=== PATIENT | male | born 1975 | race Caucasian/White ===

== ENCOUNTER 2024-09-07 10:49 | Outpatient (OUT) | payer BC, SELFPAY ==
--- OUTSIDE RECORDS SUMMARY | 2024-08-26 11:15 | XMS_ITS | Encounter Summary ---
Author Organization [facility] Address [address] [place] [address] Care Team Providers Care Recyclable Materials Sorter Name Role Phone Manjinder Mendiola MD Unavailable [phone] Reason for Visit * Reason Comments Suspicious Skin Lesion Encounter Details Date Type Department Care Team (Late st Contact Info) Description 08/26/2024 11:15 AM EDT [facility] [address] [place] [phone] Kathi Hurt MD [address] [place] [address] Neoplasm of unspecified behavior of bone, soft tissue, and skin (Primary Dx) Social History Tobacco Use Types Packs/Day Years Used Date Smoking Tobacco: Never Smokeless Tobacco: Never Sex and Gender Information Value Date Recorded Sex Assigned at Male 09/22/2023 9:51 PM EDT Legal Sex Male 7:09 PM EDT Gender Identity Male 09/22/2023 9:51 PM EDT Sexual Orientation Straight 09/22/2023 9: 51 PM EDT documented as of this encounter Progress Notes * Kathi Hurt MD - 08/26/2024 11:15 AM EDT Images from the original note were not included. Lesions: Location: Right neck Duration: Few months Quality: painful, denies itch, denies bleeding Modifying factors: aggravated by picking Associated symptoms: enlarged Treatments: none Established patient All pertinent medical history, medications, and allergies were reviewed. General Exam: alert, oriented to person, place, and time, normal affect, well appearing Unaccompanied A focused exam completed based on patient reported problems, see below: Skin Exam 1. NEOPLASM OF UNSPECIFIED BEHAVIOR OF BONE, SOFT TISSUE, AND SKIN Anterior Mid Neck Pedunculated papule Lesion biopsy Type of biopsy: tangential Informed consent: discussed and consent obtained Informed consent comment: The risks and benefits of the biopsy were discussed. Risks include but are not limited to bleeding, infection, scarring, pain, and nerve damage. An opportunity to ask questions prior to the procedure was permitted and all questions were answered. Patient was prepped and draped in usual sterile fashion: area cleansed with alcohol. Anesthesia: the lesion was anesthetized in a standard fashion Anesthetic: 1% lidocaine w/ epinephrine 1-100,000 buffered w/ 8.4% NaHCO3 Instrument used: DermaBlade Hemostasis achieved with: electrodesiccation Outcome: patient tolerated procedure well Outcome comment: The specimen was placed in a prelabeled formalin container to be sent for pathology Post-procedure details: sterile dressing applied and wound care instructions given Post-procedure details comment: Emphasized need to contact clinic for any signs of infection, uncontrollable bleeding, or complications. Dressing type: bandage Additional details: Photo taken yes Amount of lidocaine used: 0.5 cc Specimen A - Dermatopathology exam Differential Diagnosis: ISK vs inflamed acrochordon vs SCC vs verruca Check Margins: No Size of lesion: 0.5 x 0.4 cm Next Visit: pending biopsy results documented in this encounter Plan of Treatment Not on file documented as of this encounter Procedures Procedure Name Priority Date/Time Associated Diagnosis Comments SKIN / NAIL BIOPSY Routine 08/26/2024 11 :31 AM EDT Neoplasm of unspecified behavior of bone, soft tissue, and skin DERMATOPATHOLOGY EXAM Routine 08/26/2024 12:00 AM EDT Neoplasm of unspecified behavior of bone, soft tissue, and skin documented in this encounter Results * Lesion biopsy (08/26/2024 11:31 AM EDT) Narrative Jessica Lopez MA - 08/26/2024 11:31 AM EDT Type of biopsy: tangential Informed consent: discussed and consent obtained Informed consent comment: The risks and benefits of the biopsy were discussed. Risks include but are not limited to bleeding, infection, scarring, pain, and nerve damage. An opportunity to ask questions prior to the procedure was permitted and all questions were answered. Patient was prepped and draped in usual sterile fashion: area cleansed with alcohol. Anesthesia: the lesion was anesthetized in a standard fashion Anesthetic: 1% lidocaine w/ epinephrine 1-100,000 buffered w/ 8.4% NaHCO3 Instrument used: DermaBlade Hemostasis achieved with: electrodesiccation Outcome: patient tolerated procedure well Outcome comment: The specimen was placed in a prelabeled formalin container to be sent for pathology Post-procedure details: sterile dressing applied and wound care instructions given Post-procedure details comment: Emphasized need to contact clinic for any signs of infection, uncontrollable bleeding, or complications. Dressing type: bandage Additional details: Photo taken yes Amount of lidocaine used: 0.5 cc Kathi Hurt MD DERM PROCEDURE ORDERABLES Fin al Result * Dermatopathology exam (08/26/2024 12:00 AM EDT) SPECIMEN TYPE ------ SPECIMEN: MID NECK ------ [facility] ICD10 Code B07.9 [facility] PROTOCOL F - FLAT [facility] Final Diagnosis VERRUCA VULGARIS. [facility] Gross Text [facility] Microscopic Description Microscopic examination performed. [facility] CPT 60422*1 [facility] Skin Topography unknown / Unknown 08/26/2024 11:31 AM EDT Comment:Differential Diagnos is: ISK vs inflamed acrochordon vs SCC vs verruca Check Margins: No Size of lesion: 0.5 x 0.4 cm Kathi Hurt MD LAB PATHOLOGY ORDERABLES Radha echavarria Result [facility] documented in this encounter Visit Diagnoses Diagnosis Neoplasm of unspecified behavior of bone, soft tissue, and skin- Primary documented in this encounter Care Teams Recyclable Materials Sorter Relationship Specialty Start Date End Date Manjinder Mendiola MD [address] [place] [address] Referring Physician Pain Medicine 11/04/23 documented as of this encounter
--- NOTE | 2024-09-07 | XR_ITS ---
[facility] [place] [id number] Patient Name: BRYANNA KING MRN: [id number] date: 1975 Sex: M Assigned Patient Location: [facility] Current Patient Location: [facility] Accession/Order Number: [id number] Exam Date: 09/07/2024 11:18 Report Date: 09/07/2024 11:20 At the request of: AGUILA VARELA DO Procedure: XR shoulder LT min 2V LEFT SHOULDER - 4 views CLINICAL HISTORY: Chronic left anterior shoulder pain. No reported injury COMPARISON: None AP, Y, axillary and Grashey views were obtained. There is no evidence of fracture or dislocation. Minimal hypertrophy is present at the acromioclavicular joint. There are no significant soft tissue abnormalities. XR/XR shoulder LT min 2V IMPRESSION: NO ACUTE BONY FINDINGS. Impression dictated by: Salma Weathers M.D. 09/07/2024 11:20 AM Dictation Location: [place] [address] Electronically authenticated by: [id number] Y Date: 09/07/2024 11:20
--- OUTSIDE RECORDS SUMMARY | 2024-09-07 10:51 | XMS_ITS | Clinical Summary ---
Author Organization [facility] Address [address] [place] [address] Care Team Providers Care Licensed Embalmer Name Role Phone Manjinder Mendiola MD Unavailable Allergies Active Allergy Reactions Criticality Noted Date Comments Octacosanol 09/23/2023 Other Reaction(s): Unknown Medications Multiple Vitamin (multivitamin) tablet 07/26/2023 Active Active Problems Problem Noted Date Diagnosed Date Bilateral carpal tunnel syndrome 11/21/2023 Encounters Date Type Department Care Team Description 08/31/2024 [facility] [address] [place] [phone] Kathi Hurt MD 08/26/2024 11:15 AM EDT [facility] [address] [place] [phone] Kathi Hurt MD Neoplasm of unspecified behavior of bone, soft tissue, and skin (Primary Dx) 08/26/2024 Bamboo flowsheet [facility] [address] [place] [phone] Kathi Hurt MD 08/26/2024 Travel from Last 3 Months Social History Tobacco Use Types Packs/Day Years Used Date Smoking Tobacco: Never Smokeless Tobacco: Never Tobacco Cessation:Counseling Given: Not Answered Sex and Gender Information Value Date Recorded Sex Assigned at Male 09/22/2023 9:51 PM EDT Legal Sex Male 7:09 PM EDT Gender Identity Male 09/22/2023 9:51 PM EDT Sexual Orientation Straight 09/22/2023 9: 51 PM EDT Last Filed Vital Signs Vital Sign Reading Time Taken Comments Blood Pressure 121/79 09/28/2019 12:00 PM EDT Pulse - - Temperature - - Respiratory Rate - - Oxygen Saturation - - Inhaled Oxygen Concentration - - Weight 100 kg (221 lb) 09/28/2019 12:00 PM EDT Height 162.6 cm (5' 4 ) 09/28/2019 12:00 PM EDT Body Mass Index 37.93 09/28/2019 12:00 PM EDT Plan of Treatment Health Maintenance Due Date Last Done Comments CT Colonography 1975 Colonoscopy 1975 Colorectal Cancer Screening 1975 FIT-DNA 1975 FIT 1975 FOBT 1975 Sigmoidoscopy 1975 Influenza Vaccine (#1) 2024 11/11/2017, 2011 Procedures Procedure Name Priority Date/Time Associated Diagnosis Comments SKIN / NAIL BIOPSY Routine 08/26/2024 11 :31 AM EDT Neoplasm of unspecified behavior of bone, soft tissue, and skin DERMATOPATHOLOGY EXAM Routine 08/26/2024 12:00 AM EDT Neoplasm of unspecified behavior of bone, soft tissue, and skin from Last 3 Months Results * Lesion biopsy (08/26/2024 11:31 AM [...] yes Amount of lidocaine used: 0.5 cc us Kathi Hurt MD DERM PROCEDURE ORDERABLES Fin al Result * Dermatopathology exam (08/26/2024 12:00 AM EDT) SPECIMEN TYPE ------ SPECIMEN: MID NECK ------ [facility] ICD10 Code B07.9 [facility] PROTOCOL F - FLAT [facility] Final Diagnosis VERRUCA VULGARIS. [facility] Gross Text [facility] Microscopic Description Microscopic examination performed. [facility] CPT 28990*1 [facility] Skin Topography unknown / Unknown 08/26/2024 11:31 AM EDT Comment:Differential Diagnos is: ISK vs inflamed acrochordon vs SCC vs verruca Check Margins: No Size of lesion: 0.5 x 0.4 cm us Kathi Hurt MD LAB PATHOLOGY ORDERABLES Radha l Result [facility] from Last 3 Months Insurance [facility] Care Teams Licensed Embalmer Relationship Specialty Start Date End Date Manjinder Mendiola MD [address] [place] [address] Referring Physician Pain Medicine 11/04/23
--- OUTSIDE RECORDS SUMMARY | 2024-09-07 10:51 | XMS_ITS | Encounter Summary ---
Author Organization [facility] Address [address] [place] [address] Care Team Providers Care Internet Consultant Name Role Phone Manjinder Mendiola MD Unavailable Encounter Details Date Type Department Care Team (Late st Contact Info) Description 08/26/2024 Bamboo flowsheet [facility] [address] [place] [phone] Kathi Hurt MD [address] [place] [address] Social History Tobacco Use Types Packs/Day Years Used Date Smoking Tobacco: Never Smokeless Tobacco: Never Sex and Gender Information Value Date Recorded Sex Assigned at Male 09/22/2023 9:51 PM EDT Legal Sex Male 7:09 PM EDT Gender Identity Male 09/22/2023 9:51 PM EDT Sexual Orientation Straight 09/22/2023 9: 51 PM EDT documented as of this encounter Plan of Treatment Not on file documented as of this encounter Visit Diagnoses Not on filedocumented in this encounter Care Teams Internet Consultant Relationship Specialty Start Date End Date Manjinder Mendiola MD [address] [place] [address] Referring Physician Pain Medicine 11/04/23 documented as of this encounter
--- OUTSIDE RECORDS SUMMARY | 2024-09-07 10:51 | XMS_ITS | Encounter Summary ---
Author Organization [facility] Address [address] [place] [address] Care Team Providers Care Tire Maker Name Role Phone Manjinder Mendiola MD Unavailable [phone] Encounter Details Date Type Department Care Team (Late st Contact Info) Description 08/31/2024 Results Follow-Up [facility] [address] [place] [phone] Kathi Hurt MD [address] [place] [address] Social History Tobacco Use Types Packs/Day Years [...] on filedocumented in this encounter Care Teams Tire Maker Relationship Specialty Start Date End Date Manjinder Mendiola MD [address] [place] [address] Referring Physician Pain Medicine 11/04/23 documented as of this encounter
--- OUTSIDE RECORDS SUMMARY | 2024-09-07 10:51 | XMS_ITS | Encounter Summary ---
Author Organization [facility] Address [address] [place] [address] Care Team Providers Care Cloth Sander Name Role Phone Manjinder Mendiola MD Unavailable Encounter Details Date Type Department Care Team (Latest Contact Info) Description 08/26/2024 Travel Social History Tobacco Use Types Packs/Day Years [...] on filedocumented in this encounter Care Teams Cloth Sander Relationship Specialty Start Date End Date Manjinder Mendiola MD [address] [place] [address] Referring Physician Pain Medicine 11/04/23 documented as of this encounter
== END 2024-09-07 10:50 | disposition home or self-care (01) ==
LOC: RAD 10:49
PROVIDERS: PCP Nurse Practitioner Family; Visit Provider Orthopaedic Surgery Orthopaedic Trauma
DX: M25.512 Pain in left shoulder (principal)
CPT/HCPCS: 73030